=== PATIENT | male | born 1995 | race Caucasian/White ===

== ENCOUNTER 2016-04-18 04:27 | Emergency (ER) | payer BC ==
[2016-04-18] MEDS ORDERED: Ketorolac INJ* 30 MG/ML 1 ML VIAL IV ONE (04:49)
[2016-04-18] MEDS ORDERED: Morphine INJ* 2 MG/ML 1 ML CARPUJECT IV ONE (04:49)
[2016-04-18] MEDS ORDERED: Ondansetron INJ* 2 MG/ML VIAL IV ONE (04:49)
[2016-04-18] MEDS ORDERED: NS 0.9% 1000 ML* 1,000 ML IV ONE (04:49)
[2016-04-18 05:49] LABS: Hematocrit 43 % (42-52); Hemoglobin 14.3 g/dl (14.0-18.0); Mean Corpuscular HGB Conc 33 g/dl (31-36); Mean Corpuscular Hemoglobin 30 pg (27-31); Mean Corpuscular Volume 90 fL (80-94); Mean Platelet Volume 9 um3 (7.4-10.4); Red Blood Count 4.76 10^6/ul (4.0-5.4); Red Cell Distribution Width 14 % (10.5-15); White Blood Count 14.9 10^3/ul (3.5-10.8)
[2016-04-18 06:00] LABS: Albumin 4.3 g/dL (3.2-5.2); BUN/Creatinine Ratio 15.6 (8-20); Calcium 9.2 mg/dL (8.6-10.3); EGFR African American 128.4 (>60); EGFR Non-African American 99.9 (>60); Globulin 2.7 g/dL (2-4); Total Bilirubin 0.6 mg/dL (0.2-1.0)
[2016-04-18] MEDS ORDERED: Tamsulosin CAP* 0.4 MG PO ONE (06:35)
--- NOTE | 2016-04-18 06:53 | ED ---
Mohamud Rivers Rebecca, scribed for Xavier Crameruel on 04/18/16 at 0452 . Abdominal Pain/Male - HPI Summary HPI Summary: Pt is a 21 y/o M that presents to the ED c/o abd pain. Pain began suddenly at 0245 and has been constant since onset. Pain is in the RLQ and R flank without radiation and is currently sharp and ranked 8/10. Administered Ibuprofen PINION SORTER, which did not ameliorate sx. Sx aggravated by deep breaths, alleviated by nothing. Additionally c/o vomiting (2x). Denies hematuria, diarrhea and fever. PMHx kidney stones (believes he had one 1.5 weeks ago and prior to that the last one was years ago). Current episode similar to prior episodes of kidney stones, but more severe. - History of Current Complaint Chief Complaint: EDFlankPain Stated Complaint: RIGHT FLANK PAIN Time Seen by Provider: 04/18/16 04:39 Hx Obtained From: Patient Onset/Duration: Sudden Onset, Lasting Hours - 2 hours, Still Present Timing: Constant Severity Initially: Severe Severity Currently: Severe Pain Intensity: 8 Pain Scale Used: 0-10 Numeric Location: Discrete At: RLQ, Flank - right Radiates: No Character: Sharp Aggravating Factor(s): Deep Breaths Alleviating Factor(s): Nothing Associated Signs And Symptoms: Positive: Vomiting - 2x. Negative: Fever, Urinary Symptoms - Denies hematuria, Diarrhea - Allergies/Home Medications Allergies/Adverse Reactions: Allergies Allergy/AdvReac Type Severity Reaction Status Date / Time No Known Allergies Allergy Verified 04/18/16 04:32 PMH/Surg Hx/FS Hx/Imm Hx Endocrine/Hematology History: Denies: Hx Diabetes History: Reports: Hx Kidney Stones EENT History: Reports: Hx Seasonal Allergies Infectious Disease History: No Infectious Disease History: Denies: Traveled Outside the [place] in Last 30 Days - Family History Known Family History: Positive: Other - No FHx kidney stones - Social History Alcohol Use: Rare Hx Substance Use: No Substance Use Type: Reports: None Hx Tobacco Use: No Smoking Status (MU): Never Smoked Tobacco Review of Systems Negative: Fever Positive: Abdominal Pain - RLQ and R flank, Vomiting - 2x. Negative: Diarrhea Negative: hematuria All Other Systems Reviewed And Are Negative: Yes Physical Exam Triage Information Reviewed: Yes Vital Signs On Initial Exam: Initial Vitals Temp Pulse Resp BP Pulse Ox 98.7 F 83 18 152/100 100 04/18/16 04:32 04/18/16 04:32 04/18/16 04:32 04/18/16 04:32 04/18/16 04:32 Vital Signs Reviewed: Yes Appearance: Positive: Well-Appearing, No Pain Distress Skin: Positive: Warm, Skin Color Reflects Adequate Perfusion, Dry Head/Face: Positive: Normal Head/Face Inspection Eyes: Positive: EOMI, REGINA ENT: Positive: Normal ENT inspection Neck: Positive: Supple, Nontender Respiratory/Lung Sounds: Positive: Clear to Auscultation, Breath Sounds Present Cardiovascular: Positive: RRR, Pulses are Symmetrical in both Upper and Lower Extremities Abdomen Description: Positive: Soft. Negative: Nontender - Tenderness in the R flank Bowel Sounds: Positive: Present Musculoskeletal: Positive: Normal, Strength/ROM Intact, Pain @ - Tenderness in the R flank Neurological: Positive: Normal, Sensory/Motor Intact, Alert, Oriented to Person Place, Time Diagnostics - Vital Signs Vital Signs Temp Pulse Resp BP Pulse Ox 04/18/16 04:32 98.7 F 83 18 152/100 100 - Laboratory Result Diagrams: 04/18/16 05:10 04/18/16 05:10 Lab Statement: Any lab studies that have been ordered have been reviewed, and results considered in the medical decision making process. - CT CT Abd/Pel CT Interpretation Completed By: Radiologist - Obstructing calculus in the right UVJ. Abdominal Pain Fem Course/Dx - Course Assessment/Plan: Pt is a 21 y/o M with a CC of RLQ and R flank pain for 2 hours PINION SORTER. Additionally c/o vomiting (2x). Denies hematuria, diarrhea and fever. PMHx kidney stones. CT abd/pel reveals obstructing calculus in the UVJ. Pt will be signed out to Dr. Ruiz and 0700, pending dispo, awaiting UA. - Diagnoses Provider Diagnoses: Kidney calculi, Ureterovesical junction (UVJ) obstruction Discharge - Discharge Plan Condition: Stable Disposition: OTHER Discharge Disposition Comment: Pt will be signed out to Dr. Ruiz, pending dispo, awaiting UA Prescriptions: Tamsulosin HCl [Flomax] 0.4 mg PO ONCE #20 cap oxyCODONE/Acetamin 5/325 MG* [Percocet 5/325 TAB*] 1 tab PO Q8H PRN #20 tab MDD 3 PRN Reason: Pain Patient Education Materials: Kidney Stones (ED) Referrals: Joseph Nowak MD [Primary Care Provider] - The documentation as recorded by the Mohamud richardson Rebecca accurately reflects the service I personally performed and the decisions made by , Brodie Cramer.
[2016-04-18 07:18] LABS: Urine Bacteria Absent (Absent); Urine Bilirubin Negative (Negative); Urine Glucose Negative (Negative); Urine Nitrite Negative (Negative)
--- NOTE | 2016-04-18 08:42 | RAD ---
CLINICAL HISTORY: Right flank pain, history of renal stone COMPARISON: February 14, 2010 TECHNIQUE: Multiple contiguous axial CT scans were obtained of the abdomen and pelvis, without intravenous contrast enhancement. Coronal and sagittal multiplanar reformations are submitted for review. Oral contrast was not administered. FINDINGS: The study is limited by the lack of intravenous contrast. This limits evaluation of the solid organs and vasculature. LUNG BASES: The lung bases are clear. LIVER: The liver is normal in shape, size, contour, and attenuation. BILE DUCTS: There is no intrahepatic or extrahepatic biliary dilatation. GALLBLADDER: The gallbladder is normal, without pericholecystic inflammatory change. PANCREAS: The pancreas is normal, without mass or ductal dilatation. SPLEEN: Normal in size and appearance. UPPER GI TRACT: Evaluation of the gastrointestinal tract is limited by incomplete gastric distention. The upper GI tract is unremarkable. SMALL BOWEL AND MESENTERY: The small bowel is normal in contour, course, and caliber. There is no obstruction or dilatation. COLON: The colon is normal in contour, course, caliber. There is no pericolonic inflammatory change. ADRENALS: Normal bilaterally. KIDNEYS: There are multiple right renal calyceal stones measuring up to 0.4 cm. There is mild pelvocaliectasis and hydroureter. There is a 0.2 cm calculus of the right UVJ. BLADDER: The bladder is incompletely distended but is grossly normal. PELVIC ORGANS: The prostate gland is normal. The seminal vesicles are symmetric. AORTA: The aorta is normal. IVC: Unremarkable LYMPH NODES: There is no lymphadenopathy by size criteria. ABDOMINAL WALL: There is no evidence for abdominal wall hernia. BONES AND SOFT TISSUES: There are bilateral pars defects at L5 OTHER: None IMPRESSION: 1. RIGHT UVJ CALCULUS WITH MILD RIGHT-SIDED HYDRONEPHROSIS. 2. SPONDYLOLYSIS AT L5
[2016-04-18 08:51] VITALS: BP 121/76
--- NOTE | 2016-04-20 16:33 | ED ---
Nato Rivers Matthew, scribed for Conrado Ruiz MD on 04/18/16 at 0839 . Progress - Progress Note Progress Note: Per Dr. Cramer, the patient can be disposition home. He is in stable condition. Course/Dx - Diagnoses Provider Diagnoses: Kidney calculi, Ureterovesical junction (UVJ) obstruction The documentation as recorded by the Nato richardson Matthew accurately reflects the service I personally performed and the decisions made by Joseph luz Jerry, MD.
== END 2016-04-18 08:59 | disposition home or self-care (01) ==
LOC: ED 04:27
DX: N13.2 Hydronephrosis with renal and ureteral calculous obstruction (principal); N20.0 Calculus of kidney; R11.10 Vomiting, unspecified; R10.31 Right lower quadrant pain
CPT/HCPCS: 36415; 74176; 80053; 81003; 81015; 83690; 85025; 96374; 96375; 99283; J1885; J2270; J2405

== ENCOUNTER 2018-08-26 08:52 | Emergency (ER) | payer SELFPAY ==
[2018-08-26 08:58] VITALS: BP 144/101
--- NOTE | 2018-08-26 09:33 | UC ---
General HPI - HPI Summary HPI Summary: Bit by tick L ant thigh last week. 4 days ago noted rash in same area. 3 days ago + sensitivity over rash. No adenopathy No fever / chll No sob No abd discomfort Traveling out of state tomorrow for approx 9 days. - History of Current Complaint Chief Complaint: UCSkin Stated Complaint: TICK BITE Time Seen by Provider: 08/26/18 09:33 Hx Obtained From: Patient Pain Intensity: 0 - Allergy/Home Medications Allergies/Adverse Reactions: Allergies Allergy/AdvReac Type Severity Reaction Status Date / Time No Known Allergies Allergy Verified 08/26/18 08:57 Home Medications: Home Medications Chlorthalidone TAB* [Hygroton TAB*] 1 powder PO DAILY 08/26/18 [History Confirmed 08/26/18] PMH/Surg Hx/FS Hx/Imm Hx Previously Healthy: Yes - Surgical History Surgical History: Yes Surgery Procedure, Year, and Place: litho x 1 renal stone removal - Family History Known Family History: Positive: Other - No FHx kidney stones - Social History Alcohol Use: Rare Substance Use Type: None Smoking Status (MU): Never Smoked Tobacco Review of Systems All Other Systems Reviewed And Are Negative: Yes Constitutional: Positive: Negative Skin: Positive: Other - see hpi Eyes: Positive: Other - see hpi ENT: Positive: Other - see hpi Respiratory: Positive: Other - see hpi Cardiovascular: Positive: Negative Gastrointestinal: Positive: Negative Genitourinary: Positive: Negative Motor: Positive: Other - see hpi Neurovascular: Positive: Negative Musculoskeletal: Positive: Other: - see hpi Neurological: Positive: Negative Psychological: Positive: Negative Is Patient Immunocompromised?: No Physical Exam Triage Information Reviewed: Yes Appearance: Well-Appearing, Well-Nourished Vital Signs: Initial Vital Signs Temp 98 F 08/26/18 08:53 Pulse 84 08/26/18 08:53 Resp 16 08/26/18 08:53 BP 144/101 08/26/18 08:53 Pulse Ox 100 08/26/18 08:53 Vital Signs Reviewed: Yes Eye Exam: Normal ENT Exam: Normal Neck exam: Normal Respiratory Exam: Normal Cardiovascular Exam: Normal Abdominal Exam: Normal Musculoskeletal Exam: Normal - see skin Neurological Exam: Normal - grossly nonfocal Psychological Exam: Normal Skin Exam: Other - Left ant thigh with blanching and nonblanching redness, not bulls eye, approx 4.5cm x 8cm ovoid. No inguinal nor popliteal adenopathy. Mild increased warm to touch. Gait steady. Course/Dx - Course Course Of Treatment: Reviewed coa / tx plan. Not classic for lyme rash perse, but lyme rashes are not always classic. Also c /n exclude other tick borne issue. May be cellulitic, but given nonblanching along with blanching element, doubt primary. F/u PCP upone return home. Will seek medical care for problems in the meantime. receck bp via pcp. - Diagnoses Provider Diagnosis: Rash, Tick bite Discharge - Sign-Out/Discharge Documenting (check all that apply): Patient Departure All imaging exams completed and their final reports reviewed: No Studies - Discharge Plan Condition: Stable Disposition: HOME Prescriptions: DOXYcycline CAP(*) [DOXYcycline 100MG CAP(*)] 100 mg PO BID #56 cap Patient Education Materials: Tick Bite (ED), Acute Rash (ED) Referrals: Joseph Nowak MD [Primary Care Provider] - Additional Instructions: Please follow up with your primary care physician. 1-2 weeks. Drink plenty of fluids. Do not take antibiotic on an empty stomach. Avoid prolonged exposure to sun while taking antibiotic. Seek medical attention for worse or new problems. Blood work today. Blood pressure today elevated - please have this rechecked in 1-2 weeks. - Billing Disposition and Condition Condition: STABLE Disposition: Home
[2018-08-30 09:57] LABS: Anaplasma phagocytophilum Negative (Negative); B. miyamotoi PCR, B Negative (Negative); Babesia divergens/MO-1 Negative (Negative); Babesia ducani Negative (Negative); Ehrlichia chaffeensis Negative (Negative); Ehrlichia ewingii/canis Negative (Negative); Ehrlichia muris eauclairensis Negative (Negative)
== END 2018-08-26 10:10 | disposition home or self-care (01) ==
LOC: UCEAST 08:52
DX: T63.481A Toxic effect of venom of other arthropod, accidental (unintentional), initial encounter (principal); Y92.9 Unspecified place or not applicable; R21 Rash and other nonspecific skin eruption
CPT/HCPCS: 36415; 86618; 87798; 99212; G0463